=== PATIENT | female | born 1945 | race Caucasian/White ===

== ENCOUNTER → 2020-09-15 | Outpatient (CLI) | payer MEDICARE, MEDICAID ==
--- NOTE | 2020-09-15 10:11 | Diagnostic Imaging Report ---
PROCEDURE: CT sinuses without contrast TECHNIQUE: Multiple contiguous axial images were obtained through the sinuses without the use of intravenous contrast. Coronal and sagittal reformations were then performed. Auto Exposure Controls were utilized during the CT exam to meet ALARA standards for radiation dose reduction. INDICATION: History of nasal fractures, difficulty breathing, sinus congestion greater right. FINDINGS: There are postsurgical changes to the retroauricular right occiput. The sphenoid sinuses are clear and well aerated. Nasal septum is midline without significant spurring. The ethmoid air cells are clear. The frontal sinuses are clear although hypoplastic on the right. The maxillary sinuses showed trace left and mild right membrane thickening inferiorly. Membrane thickening on the right measures a maximal thickness of 4 mm. The ostiomeatal units appeared normal. The maxillary sinus ostia were widely patent. The orbital contents are unremarkable. There is opacification of a few inferior right-sided mastoid air cells. The left mastoid air cells are clear. The middle ear cavities unremarkable. IMPRESSION: Right greater than left maxillary sinus membrane thickening without air-fluid level, ostial obstruction or bony destruction. Unremarkable appearance of the nasal cavity. Postsurgical changes. No acute-appearing abnormality. Dictated by: Dictated on workstation # [id number]
== END ==
LOC: RAD 09:18
PROVIDERS: ATTEND Nurse Practitioner
DX: J34.2 Deviated nasal septum (principal); R09.81 Nasal congestion
CPT/HCPCS: 70486

== ENCOUNTER 2021-02-10 13:21 | Outpatient (RCR) | payer MEDICARE, MEDICAID ==
[~2021-02-10] VITALS: Ht 154.9 cm; Wt 74.8 kg
[2021-02-14] MEDS ORDERED: LISI-729 PO (11:00)
[2021-02-14] MEDS ORDERED: ASPI-999 PO (11:00)
[2021-02-14] MEDS ORDERED: ASCO1TAB39 PO (11:00)
[2021-02-14] MEDS ORDERED: MAGN500C15 PO (11:00)
[2021-02-14] MEDS ORDERED: OMG1KC PO (11:00)
[2021-02-14] MEDS ORDERED: CYAN50009 PO (11:00)
[2021-02-14] MEDS ORDERED: UBID50CA21 PO (11:00)
[2021-02-14] MEDS ORDERED: EMPA25TA PO (11:00)
[2021-02-14] MEDS ORDERED: VITA100T8 PO (11:00)
== END 2021-02-14 11:04 | disposition home or self-care (01) ==
LOC: PREOP 13:21
PROVIDERS: ATTEND Otolaryngology Otolaryngology/Facial Plastic Surgery
DX: Z01.812 Encounter for preprocedural laboratory examination (principal); Z01.810 Encounter for preprocedural cardiovascular examination; J32.9 Chronic sinusitis, unspecified; H65.20 Chronic serous otitis media, unspecified ear
CPT/HCPCS: 87081; 93005

== ENCOUNTER 2021-02-18 06:35 | Day surgery (SDC) | payer MEDICARE, MEDICAID ==
[2021-02-18] VITALS (9 sets, daily range): BP systolic 126–196; BP diastolic 61–95
[~2021-02-18] VITALS: Ht 154.9 cm; Wt 74.8 kg
[~2021-02-18 06:35] MED LIST: ASCO1TAB39 PO; ASPI-999 PO; CYAN50009 PO; EMPA25TA PO; LISI-729 PO; MAGN500C15 PO; OMG1KC PO; UBID50CA21 PO; VITA100T8 PO
[2021-02-18] MEDS ORDERED: LIDOCAINE/EPI 1%-1:100,000 (XYLOCAINE) 20ML ONE (07:27)
[2021-02-18] MEDS ORDERED: COCAINE HCL 4% 2 ML SYR ONE (07:27)
[2021-02-18] MEDS ORDERED: PHENYLEPHRINE 0.5% NASAL SPR (NEO-SYNEPHRINE) REG ONE (07:27)
[2021-02-18] MEDS ORDERED: BSS 15 ML ONE (07:27)
[2021-02-18] MEDS ORDERED: LACTATED RINGERS 1,000 ML IV PRN (07:30)
[2021-02-18] MEDS ORDERED: AMPICILLIN/SULBACTAM INJECTION 1.5 GM in NS (IVPB) 100 ML IV ONE (07:30)
[2021-02-18] MEDS ORDERED: proPOfol 200 MG/20 ML (DIPRIVAN) VIAL IV ONE (08:13)
[2021-02-18] MEDS ORDERED: ONDANSETRON 4 MG/2 ML (SDV) Z0FRAN ONE (08:13)
[2021-02-18] MEDS ORDERED: ROCURONIUM 10 MG/ML 5 ML SYRINGE IV ONE (08:13)
[2021-02-18] MEDS ORDERED: LIDOCAINE PF 2% 5 ML (XYLOCAINE) VIAL ONE (08:15)
[2021-02-18] MEDS ORDERED: fentaNYL INJ 100 MCG/2 ML AMP ONE (08:15)
[2021-02-18] MEDS ORDERED: GLYCOPYRROLATE 0.2 MG/ML (ROBINUL) 2 ML VIAL ONE (09:44)
[2021-02-18] MEDS ORDERED: SEVOFLURANE (ULTANE) 15 ML INHAL SOLN ONE (09:44)
[2021-02-18] MEDS ORDERED: NEOSTIGMINE 3 MG/3 ML VIAL ONE (09:44)
--- NOTE | 2021-02-18 09:53 | Progress Note-Pre Operative ---
Pre-Operative Progress Note H&P Reviewed The H&P was reviewed, patient examined and no changes noted. Date Seen by Provider: Feb 18, 2021 Time Seen by Provider: : Date H&P Reviewed: Feb 18, 2021 Time H&P Reviewed: 07:30 Pre-Operative Diagnosis: Bilat Chronic Sinusitis, Dev Septum, Bilat hyper of inf turbs GERBER HERRERA MD Feb 18, 2021 09:53
--- NOTE | 2021-02-18 09:54 | Progress Note-Post Operative ---
Post-Operative Progess Note Surgeon (s)/Construction Cost Estimator (s) Surgeon GERBER HERRERA MD Construction Cost Estimator n/a Pre-Operative Diagnosis Bilat Chronic Sinusitis, Dev Septum, Bilat hyper of inf turbs Post-Operative Diagnosis same Post-Op Procedure Note Date of Procedure: Feb 18, 2021 Name of Procedure Performed: Bilat ESS, Nasal Septoplasty, Bilat red of inf turbs, bmt Description & Findings Description and Findings: n/a Anesthesia Type get Estimated Blood Loss minimal Packing none. Specimen(s) collected/removed bilat chornic sinus disee GERBER HERERRA MD Feb 18, 2021 09:53
[2021-02-18] MEDS ORDERED: PROMETHAZINE INJ 25 MG/ML (PHENERGAN) AMP IVP PRN (10:00)
[2021-02-18] MEDS ORDERED: HYDROcodone/APAP 5 MG/325 MG (LORTAB) TAB PO PRN (10:00)
[2021-02-18] MEDS ORDERED: ACETAMINOPHEN 325 MG TABLET PO PRN (10:00)
[2021-02-18] MEDS ORDERED: D5 1/2 NS W/KCL 20 MEQ/L 1,000 ML IV SCH (10:00)
[2021-02-18] MEDS ORDERED: HYDROcodone/APAP 5 MG/325 MG (LORTAB) TAB ONE (11:08)
[2021-02-18] MEDS ORDERED: ACHD5005 PO (12:03)
[2021-02-18] MEDS ORDERED: OFLO5DRO33 EACH EAR (12:03)
[2021-02-18] MEDS ORDERED: AMOX-355 PO (12:03)
--- NOTE | 2021-02-18 13:56 | Anesthesia-General Post-Op ---
General Patient Condition Mental Status/LOC: Same as Preop Cardiovascular: Satisfactory Nausea/Vomiting: Absent Respiratory: Satisfactory Pain: Controlled Complications: Absent Post Op Complications Complications None Follow Up Care/Instructions Patient Instructions None needed. Anesthesia/Patient Condition Patient Condition Patient is doing well, no complaints, stable vital signs, no apparent adverse anesthesia problems. No complications reported per nursing. GILA FRANCISCO CRNA Feb 18, 2021 13:56
== END 2021-02-18 14:10 | disposition home or self-care (01) ==
LOC: SDC 06:35
PROVIDERS: ATTEND Otolaryngology Otolaryngology/Facial Plastic Surgery
DX: J32.9 Chronic sinusitis, unspecified (principal); J34.2 Deviated nasal septum; J34.3 Hypertrophy of nasal turbinates; H65.23 Chronic serous otitis media, bilateral; H69.93 Unspecified Eustachian tube disorder, bilateral; K21.9 Gastro-esophageal reflux disease without esophagitis; R09.81 Nasal congestion; E11.9 Type 2 diabetes mellitus without complications; Z79.82 Long term (current) use of aspirin; Z79.899 Other long term (current) drug therapy
CPT/HCPCS: 82947; 88304; 88305

== ENCOUNTER → 2021-11-22 | Outpatient (CLI) | payer MEDICARE, MEDICAID ==
[~2021-11-22] MED LIST changes: +ACHD5005 PO; +AMOX-355 PO; +CATHETER FLUSH 10 ML SYR IVP PRN; -LISI-729 PO; +LISI5TAB20 PO; +OFLO5DRO33 EACH EAR; +REGADENOSON 0.4 MG/5 ML SYR (LEXISCAN) IV ONE
[2021-11-22 09:01] VITALS: BP 130/69
--- NOTE | 2021-11-22 14:55 | STRESS TEST ---
DATE OF SERVICE: 11/22/2021 RESTING AND POST REGADENOSON TECHNETIUM-99M TETROFOSMIN SPECT CT IMAGING ORDERING PHYSICIAN: Jewel Howard MD CLINICAL DIAGNOSIS: Chest discomfort. Baseline images were carried out after injection of 10.97 mCi of technetium-99m Tetrofosmin. This was followed by 0.4 mg regadenoson and 31.8 mCi of technetium-99m Tetrofosmin for stress imaging. The electrocardiogram showed sinus rhythm at baseline. It did not change significantly with the regadenoson infusion. The patient tolerated the procedure well and did not report any symptoms. Electrocardiogram remained unchanged. Review of images at rest and following stress does not indicate any significant perfusion defects consistent with myocardial ischemia or infarction. Gated images show normal global left ventricular systolic function. Left ventricular ejection fraction is calculated to be 79%. CONCLUSIONS: 1. No evidence of any significant myocardial ischemia or infarction on this study. 2. Normal to hyperdynamic left ventricular systolic function with a calculated ejection fraction 79%. Job ID: [id number] DocumentID: [id number] Dictated Date: 11/22/2021 14:21:30 Customer Account Representative Date: 11/22/2021 14:54:40 Dictated By: RICKIE SINGH MD, MA, FACP, FACC,
== END ==
LOC: CARD 08:30
PROVIDERS: ATTEND Student in an Organized Health Care Education/Training Program
DX: R07.89 Other chest pain (principal)
CPT/HCPCS: 78452; 93017

== ENCOUNTER → 2023-02-12 | Outpatient (CLI) | payer MEDICARE, MEDICAID ==
[~2023-02-12] MED LIST changes: -CATHETER FLUSH 10 ML SYR IVP PRN; -REGADENOSON 0.4 MG/5 ML SYR (LEXISCAN) IV ONE
--- NOTE | 2023-02-12 11:54 | Diagnostic Imaging Report ---
EXAMINATION: Chest 2 view HISTORY: OBSTRUCTIVE SLEEP APNEA, ADULT, SOB, CHRONIC COUGH COMPARISON: 04/28/2016 FINDINGS: Heart size and pulmonary vasculature are normal. The lungs are clear without consolidation, pleural effusion, or pneumothorax. The osseous structures are intact. Surgical changes of the cervical spine. IMPRESSION: 1. No acute radiographic abnormality in the chest. Dictated by: Dictated on workstation # [id number]
== END ==
LOC: RAD 10:55
PROVIDERS: ATTEND Internal Medicine Critical Care Medicine
DX: R06.02 Shortness of breath (principal); R05.3 Chronic cough; G47.33 Obstructive sleep apnea (adult) (pediatric)
CPT/HCPCS: 71046